=== PATIENT | female | born 1985 | race Caucasian/White ===

== ENCOUNTER 2019-07-15 01:32 | Emergency (ER) | payer SELFPAY ==
[~2019-07-15] VITALS: Ht 165.1 cm; Wt 87.5 kg
[2019-07-15 01:39] VITALS: BP 183/116
--- NOTE | 2019-07-15 01:48 | NUR ---
PT TAKEN TO BED 6
--- NOTE | 2019-07-15 01:49 | NUR ---
Dr. Douglas examining patient.
[2019-07-15] MEDS ORDERED: FAMOTIDINE 20 MG TAB PO ONE (01:55)
[2019-07-15] MEDS ORDERED: methylPREDNISolone SS 125 MG in WATER STERILE 2 ML IM ONE (01:55)
[2019-07-15] MEDS ORDERED: WATER STERILE 10 ML MC ONE (02:08)
[2019-07-15] MEDS ORDERED: methylPREDNISolone SS 125 MG/2 ML VIAL ONE (02:08)
--- NOTE | 2019-07-15 02:23 | NUR ---
Patient discharged with v/s stable. Written and verbal after care instructions given and explained. Patient alert, oriented and verbalized understanding of instructions. Ambulatory with steady gait. All questions addressed prior to discharge. ID band removed. Patient advised to follow up with PMD. Rx of PEPCID, MEDROL PACK given. Patient educated on indication of medication including possible reaction and side effects. Opportunity to ask questions provided and answered.
--- NOTE | 2019-07-15 02:23 | NUR ---
RECEIVED A 33/F FROM TRIAGE WITH COMPLAINTS OF A RASH S/P EATING SHRIMP. PT DENIES ANY SOB/DIFFICULTY SWALLOWING. SPEAKING IN CLEAR SENTENCES WITHOUT DIFFICULTY. IN BED FOR MSE.
== END 2019-07-15 02:23 | disposition home or self-care (01) ==
LOC: MED 01:32
DX: L50.0 Allergic urticaria (principal); R11.2 Nausea with vomiting, unspecified; I10 Essential (primary) hypertension; Z91.013 Allergy to seafood
CPT/HCPCS: 96372; 99283; J2930

== ENCOUNTER 2022-10-19 15:17 | Emergency (ER) | payer MEDICAID ==
[~2022-10-19] VITALS: Ht 162.6 cm; Wt 83.5 kg
[2022-10-19 15:20] VITALS: BP 132/84; PULSE 66; RESP 18; TEMP 98.9; O2SAT 99
[2022-10-19 15:45] VITALS: O2SAT 99
[2022-10-19 16:07] LABS: BASOPHILS % (AUTO) 0.2 % (0.0-2.0); EOSINOPHILS # (AUTO) 0.2 K/uL (0-0.4); EOSINOPHILS % (AUTO) 2.2 % (0.0-4.0); HEMOGLOBIN 12.1 g/dL (12.0-16.0); LYMPHOCYTES # (AUTO) 1.8 K/uL (2.5-16.5); LYMPHOCYTES % (AUTO) 17.5 % (20.5-51.1); MEAN CORPUSCULAR HEMOGLOBIN 28 pg (27-31); MEAN CORPUSCULAR HGB CONC 34 g/dL (33-37); MEAN CORPUSCULAR VOLUME 83.1 fL (80-94); MONOCYTES # (AUTO) 0.6 K/uL (0.8-1.0); MONOCYTES % (AUTO) 5.7 % (1.7-9.3); NEUTROPHILS # (AUTO) 7.6 K/uL (1.8-7.7); NEUTROPHILS % (AUTO) 74.4 % (42.2-75.2); PLATELET COUNT (AUTO) 241 K/uL (140-450); RED BLOOD CELL COUNT(AUTO) 4.33 MIL/uL (4.20-5.40); RED CELL DISTRIBUTION WIDTH 15.3 % (11.6-13.7); WHITE BLOOD COUNT (AUTO) 10.2 K/uL (4.8-10.8)
[2022-10-19 16:35] LABS: ALBUMIN 3.1 g/dL (3.4-5.0); ANION GAP 14.3 (8-16); CALCIUM 8.8 mg/dL (8.5-10.1); CREATININE 0.6 mg/dL (0.6-1.3); POTASSIUM 4.3 mmol/L (3.5-5.1); TOTAL BILIRUBIN 0.3 mg/dL (0.0-1.0); TOTAL PROTEIN, SERUM 7.2 g/dL (6.4-8.2)
[2022-10-19 16:36] LABS: APPEARANCE,URINE SL CLOUDY (CLEAR); BILIRUBIN,URINE NEGATIVE (NEGATIVE); BLOOD, URINE NEGATIVE (NEGATIVE); COLOR,URINE YELLOW (YELLOW); LEUKOCYTE ESTERASE ,URINE 1+ (NEGATIVE); NITRITE, URINE NEGATIVE (NEGATIVE); PH,URINE 6.5 (5.0-9.0); PROTEIN,URINE NEGATIVE (NEGATIVE); UGLUCOSE NEGATIVE (NEGATIVE); UROBILINOGEN,URINE 0.2 EU/dL (0.2 - 1)
[2022-10-19 16:50] LABS: BACTERIA,URINE 1+ /HPF (None Seen); MUCUS,URINE 1+ /LPF (None Seen); RBC,URINE 0-5 /HPF (0-5); SQUAMOUS EPITHELIAL CELL,UR 20-50 /LPF (0-3 (FEW)); TRICHOMONAS,URINE None Seen /HPF (None Seen); YEAST,URINE None Seen /HPF (None Seen)
[2022-10-19 17:58] VITALS: O2SAT 100
[2022-10-19] MEDS ORDERED: ACET-10509 PO (21:08)
[2022-10-19] MEDS ORDERED: CEPH-588 PO (21:08)
[2022-10-19 21:34] VITALS: BP 119/71; PULSE 66; RESP 18; TEMP 98.2; O2SAT 99
== END 2022-10-19 21:34 | disposition home or self-care (01) ==
LOC: MED 15:17
DX: O23.42 Unspecified infection of urinary tract in pregnancy, second trimester (principal); O10.912 Unspecified pre-existing hypertension complicating pregnancy, second trimester; Z3A.15 15 weeks gestation of pregnancy; Z98.890 Other specified postprocedural states; Z79.899 Other long term (current) drug therapy; Z79.2 Long term (current) use of antibiotics; Z91.013 Allergy to seafood
CPT/HCPCS: 36415; 74176; 76705; 76815; 76856; 80053; 81001; 81025; 83690; 85025; 85651; 86140; 87086; 93976; 99285; Q0092